=== PATIENT | male | born 1990 | race African-American/Black ===

== ENCOUNTER 2017-01-02 07:18 | Emergency (ER) | payer MEDICAID ==
[~2017-01-02] VITALS: Ht 160 cm; Wt 68.0 kg
[~2017-01-02 07:18] MED LIST: AUGM875T PO; CHLO.12%30 SSP
[2017-01-02 07:20] VITALS: BP 135/80; PULSE 76; RESP 20; TEMP 97.6; O2SAT 98
--- NOTE | 2017-01-02 07:32 | PD ---
HPI Chief Complaint: GI Complaint Time Seen by Provider: 07:32 Travel History International Travel<30 days: No Contact w/Intl Traveler<30days: No Traveled to known affect area: No History of Present Illness HPI 26-year-old male came to the emergency room with history of vomiting that started last night. Patient says that he has been vomiting all night long. No history of diarrhea. He is allergic to pineapple and he was in a restaurant yesterday and sips some pineapple drink. He says he must have taken 3 of forceps and thinks that was the reason. No known sick contacts. He feels little weak and dizzy at this point. Last vomit was half an hour ago. He is here with his girlfriend was up all night with him while he was throwing up. Vital signs are stable otherwise. Patient is otherwise a healthy person. No history of abdominal pain. PFSH Past Medical History Narrative Medical List of his past medical, surgical, social and family history was reviewed from the nursing note. ADHD: Yes Anxiety: Yes Depression: Yes Diminished Hearing: No Immunizations Current: Yes Past Surgical History Eye Surgery: Yes (LT. EYE SURGERY AT [age] YEARS OF AGE. ) Social History Alcohol Use: Yes (occassional) Tobacco Use: No Substance Use: No (Patient denies.) Allergies-Medications (Allergen,Severity, Reaction): Coded Allergies: Pineapple (Verified Allergy, Severe, 01/02/17) PT DENIES Comments List of his allergies reviewed from the nursing note. Reported Meds & Prescriptions Reported Meds & Active Scripts Active Zofran Odt (Ondansetron Odt) 4 Mg Tab 4 Mg SL Q6HR PRN Narrative Medication List of his home medications reviewed from the nursing note. Review of Systems Except as stated in HPI: all other systems reviewed are Neg Physical Exam Narrative GENERAL: Awake, alert, moderate distress SKIN: Focused skin assessment warm/dry. HEAD: Atraumatic. Normocephalic. EYES: Pupils equal and round. No scleral icterus. No injection or drainage. ENT: No nasal bleeding or discharge. Tongue is dry and coated NECK: Trachea midline. No JVD. CARDIOVASCULAR: Regular rate and rhythm. No murmur appreciated. RESPIRATORY: No accessory muscle use. Clear to auscultation. Breath sounds equal bilaterally. GASTROINTESTINAL: Abdomen soft, non-tender, nondistended. Hepatic and splenic margins not palpable. MUSCULOSKELETAL: No obvious deformities. No clubbing. No cyanosis. No edema. NEUROLOGICAL: Awake and alert. No obvious cranial nerve deficits. Motor grossly within normal limits. Normal speech. PSYCHIATRIC: Appropriate mood and affect; insight and judgment normal. Data Data Last Documented VS Vital Signs Date Time Temp Pulse Resp B/P Pulse Ox O2 Delivery O2 Flow Rate FiO2 01/02/17 07:45 16 99 Room Air 01/02/17 07:20 97.6 76 135/80 Orders Basic Metabolic Panel (Bmp) (01/02/17 07:34) Complete Blood Count With Diff (01/02/17 07:34) Iv Access Insert/Monitor (01/02/17 07:34) Ecg Monitoring (01/02/17:34) Oximetry (01/02/17 07:34) Ondansetron Inj (Zofran Inj) (01/02/17 07:45) Sodium Chlor 0.9% 1000 Ml Inj (Ns 1000 M (01/02/17 07:34) Sodium Chloride 0.9% Flush (Ns Flush) (01/02/17 07:45) Labs Laboratory Tests Test 01/02/17 07:45 White Blood Count 10.1 TH/MM3 Red Blood Count 4.91 MIL/MM3 Hemoglobin 14.8 GM/DL Hematocrit 42.4 % Mean Corpuscular Volume 86.2 FL Mean Corpuscular Hemoglobin 30.1 PG Mean Corpuscular Hemoglobin 34.9 % Concent Red Cell Distribution Width 13.2 % Platelet Count 202 TH/MM3 Mean Platelet Volume 9.3 FL Neutrophils (%) (Auto) 78.4 % Lymphocytes (%) (Auto) 13.2 % Monocytes (%) (Auto) 6.5 % Eosinophils (%) (Auto) 1.5 % Basophils (%) (Auto) 0.4 % Neutrophils # (Auto) 7.9 TH/MM3 Lymphocytes # (Auto) 1.3 TH/MM3 Monocytes # (Auto) 0.7 TH/MM3 Eosinophils # (Auto) 0.1 TH/MM3 Basophils # (Auto) 0.0 TH/MM3 CBC Comment DIFF FINAL Differential Comment Sodium Level 139 MEQ/L Potassium Level 3.9 MEQ/L Chloride Level 104 MEQ/L Carbon Dioxide Level 22.4 MEQ/L Anion Gap 13 MEQ/L Blood Urea Nitrogen 20 MG/DL Creatinine 0.96 MG/DL Estimat Glomerular Filtration 116 ML/MIN Rate Random Glucose 91 MG/DL Calcium Level 9.6 MG/DL [facility] Medical Decision Making Medical Screen Exam Complete: Yes Emergency Medical Condition: Yes Medical Record Reviewed: Yes Differential Diagnosis Food Poisoning, acute gastritis Narrative Course 8:30 AM patient was given 1 L of IV fluid bolus and IV Zofran. Blood test shows slightly elevated BUN. Otherwise within normal limits. I went back and reassessed him. He says he is feeling better. He did not have anymore vomiting episode. Patient will be given some by mouth fluid challenge. If he tolerates well to be discharged home. Procedures EKG Prior to Arrival: No Diagnosis Primary Impression: Vomiting Qualified Code: R11.2 - Intractable vomiting with nausea, unspecified vomiting type Referrals: Primary Care Physician Additional Instructions: Please return to the ER if the condition worsens or any other new concerns. Take mostly clear liquid diet for the next few hours to symptoms of subsided completely. Take the medication as per the prescription direction. Follow-up with your primary care. Med/Other Pt SpecificInfo: Prescription(s) given Scripts Ondansetron Odt (Zofran Odt)4 Mg Tab4 Mg SL Q6HR PRN (Nausea/Vomiting) #15 TAB Ref 0 Prov:Isreal Sterling MD 01/02/17 Disposition: 01 DISCHARGE HOME Condition: Stable Isreal Sterling MD Jan 02, 2017 07:32
[2017-01-02] MEDS ORDERED: SODIUM CHLOR 0.9% 1000 ML INJ 1,000 ML IV SCH (07:34)
[2017-01-02 07:45] VITALS: RESP 16; O2SAT 99
[2017-01-02] MEDS ORDERED: ONDANSETRON HCL 4 MG/2 ML VIAL IVP ONE (07:45)
[2017-01-02] MEDS ORDERED: SODIUM CHLORIDE 0.9% FLUSH 10 ML FLUSH IV FLUSH PRN (07:45)
[2017-01-02 07:56] LABS: AUTOMATED NEUTROPHIL # 7.9 TH/MM3 (1.8-7.7); BASOPHIL % 0.4 % (0.0-2.0); EOSINOPHIL # 0.1 TH/MM3 (0-0.4); EOSINOPHIL % 1.5 % (0.0-4.0); HEMATOCRIT 42.4 % (39.0-51.0); HEMO FLAGS DIFF FINAL; LYMPH % 13.2 % (9.0-44.0); LYMPHOCYTE # 1.3 TH/MM3 (1.0-4.8); MEAN CELL VOLUME 86.2 FL (80.0-100.0); MEAN CORPUSCULAR HEMOGLOBIN 30.1 PG (27.0-34.0); MEAN CORPUSCULAR HGB CONC 34.9 % (32.0-36.0); MONO % 6.5 % (0.0-8.0); NEUT % 78.4 % (16.0-70.0); PLATELET COUNT 202 TH/MM3 (150-450); RED BLOOD COUNT 4.91 MIL/MM3 (4.50-5.90); RED CELL DISTRIBUTION WIDTH 13.2 % (11.6-17.2); WHITE BLOOD COUNT 10.1 TH/MM3 (4.0-11.0)
[2017-01-02 08:18] LABS: BICARBONATE 22.4 MEQ/L (21.0-32.0); POTASSIUM 3.9 MEQ/L (3.5-5.1)
[2017-01-02] MEDS ORDERED: ZOFR4TAB3 SL (08:35)
== END 2017-01-02 09:22 | disposition home or self-care (01) ==
LOC: NEPE 07:18
DX: R11.2 Nausea with vomiting, unspecified (principal)
CPT/HCPCS: 80048; 85025; 96374; 99284; J2405; J7030

== ENCOUNTER 2017-09-26 21:54 | Emergency (ER) | payer MEDICAID, OTHER ==
[~2017-09-26] VITALS: Ht 160 cm; Wt 65.9 kg
[~2017-09-26 21:54] MED LIST changes: -AUGM875T PO; -CHLO.12%30 SSP; +ZOFR4TAB3 SL
[2017-09-26 22:06] VITALS: BP 119/65; PULSE 86; TEMP 98.6; O2SAT 96
[2017-09-26] MEDS ORDERED: SODIUM CHLOR 0.9% 1000 ML INJ 1,000 ML IV ONE (23:45)
--- NOTE | 2017-09-26 23:48 | PD ---
HPI Chief Complaint: Cold / Flu Symptoms Time Seen by Provider: 23:37 Travel History International Travel<30 days: No Contact w/Intl Traveler<30days: No Traveled to known affect area: No History of Present Illness HPI 27 years old male complaining generalized malaise and weakness, coughing fever chills. Patient states that his symptoms started 5 days ago and got progressively worse since then. Patient states the cough is persistent and productive. Patient states that he passed out twice today at home and hit his head. Patient complains of mild aching headache on the right side of the head. Patient denies any visual change. Patient denies any neck pain. Patient denies any chest pain or shortness of breath. Patient denies abdominal pain. Patient denies any nausea vomiting diarrhea. Patient states that he has poor appetite for the past several days. Patient denies any focal weakness or numbness of the extremity. PFSH Past Medical History ADHD: Yes (w/htn) Anxiety: Yes Depression: Yes Diminished Hearing: No Immunizations Current: Yes Tetanus Vaccination: < 5 Years Influenza Vaccination: No Past Surgical History Eye Surgery: Yes (LT. EYE SURGERY AT [age] YEARS OF AGE. ) Social History Alcohol Use: No Tobacco Use: No Substance Use: No Allergies-Medications (Allergen,Severity, Reaction): Coded Allergies: pineapple (Unverified Allergy, Severe, 03/09/17) PT DENIES Reported Meds & Prescriptions Reported Meds & Active Scripts Active Review of Systems General / Constitutional: Positive: Fever Eyes: No: Visual changes HENT: Positive: Headaches Cardiovascular: No: Chest Pain or Discomfort Respiratory: Positive: Cough, No: Shortness of Breath Gastrointestinal: No: Abdominal Pain Genitourinary: No: Dysuria Musculoskeletal: No: Pain Skin: No Rash Neurologic: No: Weakness Psychiatric: No: Depression Endocrine: No: Polydipsia Hematologic/Lymphatic: No: Easy Bruising Physical Exam Narrative GENERAL: Well-nourished, well-developed patient. SKIN: Focused skin assessment warm/dry. HEAD: Normocephalic. Mild tenderness on palpation right parietal area of the scalp. EYES: No scleral icterus. No injection or drainage. Pupils 2 mm equal reactive. Throat: Nonerythematous. NECK: Supple, trachea midline. No JVD or lymphadenopathy. No meningismus CARDIOVASCULAR: Regular rate and rhythm without murmurs, gallops, or rubs. RESPIRATORY: Breath sounds equal bilaterally. No accessory muscle use. GASTROINTESTINAL: Abdomen soft, non-tender, nondistended. MUSCULOSKELETAL: No cyanosis, or edema. BACK: Nontender without obvious deformity. No CVA tenderness. Neurologic exam normal. Data Data Last Documented VS Vital Signs Date Time Temp Pulse Resp B/P (MAP) Pulse Ox O2 Delivery O2 Flow Rate FiO2 09/26/17 23:57 97 Room Air 09/26/17 22:06 98.6 86 119/65 (83) Orders Orders Complete Blood Count With Diff (09/26/17 23:41) Comprehensive Metabolic Panel (09/26/17 23:41) Influenzae A/B Antigen (09/26/17 23:41) Chest, Single Ap (09/26/17 23:41) Iv Access Insert/Monitor (09/26/17 23:41) Ecg Monitoring (09/26/17 23:41) Oximetry (09/26/17 23:41) Sodium Chlor 0.9% 1000 Ml Inj (Ns 1000 M (09/26/17 23:45) Labs Laboratory Tests Test 09/26/17 23:55 White Blood Count 8.8 TH/MM3 Red Blood Count 4.92 MIL/MM3 Hemoglobin 15.4 GM/DL Hematocrit 42.9 % Mean Corpuscular Volume 87.2 FL Mean Corpuscular Hemoglobin 31.3 PG Mean Corpuscular Hemoglobin Concent 35.9 % Red Cell Distribution Width 12.2 % Platelet Count 188 TH/MM3 Mean Platelet Volume 8.6 FL Neutrophils (%) (Auto) 73.5 % Lymphocytes (%) (Auto) 10.6 % Monocytes (%) (Auto) 12.6 % Eosinophils (%) (Auto) 2.8 % Basophils (%) (Auto) 0.5 % Neutrophils # (Auto) 6.5 TH/MM3 Lymphocytes # (Auto) 0.9 TH/MM3 Monocytes # (Auto) 1.1 TH/MM3 Eosinophils # (Auto) 0.2 TH/MM3 Basophils # (Auto) 0.0 TH/MM3 CBC Comment DIFF FINAL Differential Comment Blood Urea Nitrogen 11 MG/DL Creatinine 1.11 MG/DL Random Glucose 90 MG/DL Total Protein 8.3 GM/DL Albumin 4.0 GM/DL Calcium Level 9.1 MG/DL Alkaline Phosphatase 73 U/L Aspartate Amino Transf (AST/SGOT) 42 U/L Alanine Aminotransferase (ALT/SGPT) 23 U/L Total Bilirubin 0.8 MG/DL Sodium Level 136 MEQ/L Potassium Level 5.0 MEQ/L Chloride Level 103 MEQ/L Carbon Dioxide Level 24.1 MEQ/L Anion Gap 9 MEQ/L Estimat Glomerular Filtration Rate 97 ML/MIN MDM Medical Decision Making Medical Screen Exam Complete: Yes Emergency Medical Condition: Yes Interpretation(s) 1:15 AM. Chest x-ray showed no acute consolidation. CBC within normal limits. CMP within normal limits. AST 42. Influenza AB antigen negative. Differential Diagnosis Differential diagnoses including viral syndrome, bronchitis, pneumonia, dehydration, electrolyte imbalance. Narrative Course 27 years old male with generalized malaise and weakness, fever, coughing congestion and syncope. Normal saline solution 1 L IV bolus. Zithromax 500 mg p.o. given. Diagnosis Primary Impression: Bronchitis Additional Impression: Viral syndrome Patient Instructions: General Instructions Additional Instructions: Z-Bran as directed. [id number] cough medication as directed. Encourage p.o. fluid. Follow-up with personal physician. Return if persistent problem or worse. Med/Other Pt SpecificInfo: Prescription(s) given Scripts Azithromycin (Zithromax Z-Bran) 250 Mg Dspk 250 MG PO DIRECTED for Infection, #1 DSPK 0 Refills 500 MG (2 tabs) day 1, then 1 tab days 2-5. Prov: Karsten Yoo MD 09/27/17 Disposition: 01 DISCHARGE HOME Condition: Stable Karsten Yoo MD Sep 26, 2017 23:48
[2017-09-26 23:57] VITALS: O2SAT 97
[2017-09-27 00:09] LABS: AUTOMATED NEUTROPHIL # 6.5 TH/MM3 (1.8-7.7); BASOPHIL % 0.5 % (0.0-2.0); EOSINOPHIL # 0.2 TH/MM3 (0-0.4); EOSINOPHIL % 2.8 % (0.0-4.0); HEMATOCRIT 42.9 % (39.0-51.0); HEMOGLOBIN 15.4 GM/DL (13.0-17.0); LYMPH % 10.6 % (9.0-44.0); LYMPHOCYTE # 0.9 TH/MM3 (1.0-4.8); MEAN CELL VOLUME 87.2 FL (80.0-100.0); MEAN CORPUSCULAR HEMOGLOBIN 31.3 PG (27.0-34.0); MEAN CORPUSCULAR HGB CONC 35.9 % (32.0-36.0); MEAN PLATELET VOLUME 8.6 FL (7.0-11.0); MONO % 12.6 % (0.0-8.0); MONOCYTE # 1.1 TH/MM3 (0-0.9); NEUT % 73.5 % (16.0-70.0); PLATELET COUNT 188 TH/MM3 (150-450); RED BLOOD COUNT 4.92 MIL/MM3 (4.50-5.90); RED CELL DISTRIBUTION WIDTH 12.2 % (11.6-17.2); WHITE BLOOD COUNT 8.8 TH/MM3 (4.0-11.0)
[2017-09-27 00:28] LABS: ALT (GPT) 23 U/L (12-78)
[2017-09-27 00:30] LABS: ALKALINE PHOSPHATASE 73 U/L (45-117); TOTAL BILIRUBIN ADULT 0.8 MG/DL (0.2-1.0); TOTAL PROTEIN 8.3 GM/DL (6.4-8.2)
[2017-09-27 00:35] LABS: AST (GOT) 42 U/L (15-37); BICARBONATE 24.1 MEQ/L (21.0-32.0); BLOOD UREA NITROGEN 11 MG/DL (7-18); CALCIUM 9.1 MG/DL (8.5-10.1); CHLORIDE 103 MEQ/L (98-107); CREATININE 1.11 MG/DL (0.60-1.30); GLOMERULAR FILTRATION RATE 97 ML/MIN (>89); GLUCOSE,RANDOM 90 MG/DL (74-106); SODIUM (NA) 136 MEQ/L (136-145)
--- NOTE | 2017-09-27 01:13 | RADRPT ---
EXAM DATE/TIME: 09/27/2017 00:30 [facility] COMPARISON: No previous studies available for comparison. INDICATIONS : Short of breath. MEDICAL HISTORY : None. SURGICAL HISTORY : None. ENCOUNTER: Initial ACUITY: 1 day PAIN SCORE: 0/10 LOCATION: Bilateral chest FINDINGS: Portable AP view of the chest demonstrates a normal-sized cardiac silhouette. No effusion, consolidat ion, or pneumothorax is identified. The bones and soft tissues demonstrate no acute finding. EKG line s overlie the patient. CONCLUSION: No acute cardiopulmonary abnormality is identified. Arvind Liang MD on September 27, 2017 at 1:11 Board Certified Radiologist. This report was verified electronically.
[2017-09-27] MEDS ORDERED: ZITHTAB PO (01:19)
[2017-09-27] MEDS ORDERED: AZITHROMYCIN 250 MG TAB PO ONE (01:30)
== END 2017-09-27 01:52 | disposition home or self-care (01) ==
LOC: NEPE 21:54
DX: J40 Bronchitis, not specified as acute or chronic (principal); B34.9 Viral infection, unspecified
CPT/HCPCS: 71045; 80053; 85025; 87804; 96360; 99284; J7030